=== PATIENT | male | born 1940 | race Caucasian/White ===

== ENCOUNTER 2022-03-07 12:40 | Inpatient (IN) ==
[2022-03-07] MEDS ORDERED: HYDROmorphone 1 MG/1 ML SYRINGE IV STA (14:14)
[2022-03-07] MEDS ORDERED: ONDANSETRON 4 MG/2 ML VIAL IV STA (14:14)
[2022-03-07 14:40] LABS: Basophils % 0.4 % (0.0-0.8); Eosinophils % 0.8 % (0.00-10.9); Hematocrit 31.9 VOL% (42.0-52.0); Hemoglobin 10.8 GM/DL (14.0-18.0); Immature Granulocytes % 0.4 %; Immature Granulocytes Absolute 0.01 #; Lymphocytes # 0.5 10*3/uL (1.4-4.0); Lymphocytes % 22.5 % (21.2-54.2); Mean Corpuscular HGB Conc 33.9 GM/DL (32-36); Mean Corpuscular Volume 93.3 FL (87-102); Mean Platelet Volume 12.8 FL (9.6-12.0); Monocytes # 0.5 10*3/uL (0.11-0.8); Monocytes % 21.3 % (1.7-12.7); Neutrophils % 54.6 % (38.7-73.9); Platelet Count 128 T/CUMM (130-400); Red Blood Count 3.42 MC/CUMM (3.8-5.5); Red Cell Distribution Width 15.8 % (9.3-17.3); White Blood Count 2.4 T/CUMM (4-12)
[2022-03-07 14:57] LABS: Calcium 8.1 MG/DL (8.5-10.1); Osmolality,Calculated 284.1 MOS/KG (273-304); Potassium 3.4 MMOL/L (3.5-5.1)
[2022-03-07 15:03] LABS: Eosinophils 2 % (0-10); Lymphocytes 23 % (20-55); Total Cells Counted 100
[2022-03-07 15:04] LABS: Hypochromia Slight; Ovalocytes Slight; Reactive Lymphocytes Slight; Schistocytes Slight; Tear Drop Cells Slight
[2022-03-07 15:05] LABS: Platelet Estimate Normal; Spherocytes Slight
[2022-03-07] MEDS ORDERED: DEXAMETHASONE 10 MG/1 ML VIAL IV STA (16:13)
[2022-03-07] MEDS ORDERED: guaiFENesin/DM ER 600-30 MG TABLET PO PRN (17:20)
[2022-03-07] MEDS ORDERED: ZALEPLON 5 MG CAPSULE PO PRN (17:20)
[2022-03-07] MEDS ORDERED: ONDANSETRON 4 MG/2 ML VIAL IV PRN (17:20)
[2022-03-07] MEDS ORDERED: NICOTINE 21 MG/24 HR PATCH TRANSDERM PRN (17:20)
[2022-03-07] MEDS ORDERED: hydrALAZINE 20 MG/1 ML VIAL IV PRN (17:20)
[2022-03-07] MEDS ORDERED: diphenhydrAMINE CAP 25 MG CAPSULE PO PRN (17:20)
[2022-03-07] MEDS ORDERED: GABAPENTIN 100 MG CAPSULE PO PRN (19:53)
[2022-03-07] MEDS: HYDROmorphone 1 MG/1 ML SYRINGE IV PRN (20:25)
[2022-03-07] MEDS: ALFUZOSIN 10 MG TABLET PO SCH (21:57)
[2022-03-07] MEDS: traZODone 50 MG TABLET PO SCH (21:57)
[2022-03-07] MEDS: ACYCLOVIR 200 MG CAPSULE PO SCH (22:02)
[2022-03-08] MEDS: MORPHINE 2 MG/1 ML SYRINGE IV PRN ×2 (04:09→09:41)
[2022-03-08 04:50] LABS: Hematocrit 32.6 VOL% (42.0-52.0); Hemoglobin 10.9 GM/DL (14.0-18.0); Lymphocytes # 0.4 10*3/uL (1.4-4.0); Lymphocytes % 23.5 % (21.2-54.2); Mean Corpuscular HGB Conc 33.4 GM/DL (32-36); Mean Corpuscular Volume 93.4 FL (87-102); Mean Platelet Volume 12.3 FL (9.6-12.0); Monocytes # 0.1 10*3/uL (0.11-0.8); Neutrophils % 73.5 % (38.7-73.9); Platelet Count 119 T/CUMM (130-400); Red Blood Count 3.49 MC/CUMM (3.8-5.5); Red Cell Distribution Width 15.8 % (9.3-17.3); White Blood Count 1.7 T/CUMM (4-12)
[2022-03-08 05:03] LABS: Calcium 8.2 MG/DL (8.5-10.1); Osmolality,Calculated 283.4 MOS/KG (273-304); Potassium 3.9 MMOL/L (3.5-5.1)
[2022-03-08 05:15] LABS: Hypochromia Slight; Lymphocytes 13 % (20-55); Ovalocytes Few; Platelet Estimate Normal; Total Cells Counted 100
[2022-03-08] MEDS: HYDROmorphone 1 MG/1 ML SYRINGE IV PRN ×3 (07:41→20:48)
[2022-03-08] MEDS: ATORVASTATIN 40 MG TABLET PO SCH (09:36)
[2022-03-08] MEDS: PANTOPRAZOLE 40 MG TABLET PO SCH (09:37)
[2022-03-08] MEDS: ACYCLOVIR 200 MG CAPSULE PO SCH ×2 (09:37→20:47)
[2022-03-08] MEDS: DOCUSATE SODIUM 100 MG CAPSULE PO SCH ×2 (12:38→20:47)
[2022-03-08] MEDS: LINACLOTIDE 145 MCG CAPSULE PO SCH (12:38)
[2022-03-08] MEDS: POLYETHYLENE GLYCOL POWDER 17 GM PACK PO SCH ×2 (12:38→20:47)
[2022-03-08] MEDS: LEVOFLOXACIN INJ 500 MG/100 ML PREMIX IV SCH (17:05)
[2022-03-08] MEDS: traZODone 50 MG TABLET PO SCH (20:47)
[2022-03-08] MEDS: ALFUZOSIN 10 MG TABLET PO SCH (20:47)
[2022-03-09] MEDS: MORPHINE 2 MG/1 ML SYRINGE IV PRN ×4 (00:16→15:14)
[2022-03-09] MEDS: HYDROmorphone 1 MG/1 ML SYRINGE IV PRN ×5 (02:35→21:25)
[2022-03-09] MEDS: ACYCLOVIR 200 MG CAPSULE PO SCH ×2 (08:01→21:23)
[2022-03-09] MEDS: ATORVASTATIN 40 MG TABLET PO SCH (08:01)
[2022-03-09] MEDS: DOCUSATE SODIUM 100 MG CAPSULE PO SCH ×2 (08:01→21:23)
[2022-03-09] MEDS: PANTOPRAZOLE 40 MG TABLET PO SCH (08:01)
[2022-03-09] MEDS: LINACLOTIDE 145 MCG CAPSULE PO SCH (08:14)
[2022-03-09] MEDS: POLYETHYLENE GLYCOL POWDER 17 GM PACK PO SCH ×2 (08:15→21:25)
[2022-03-09] MEDS: PROMETHAZINE 25 MG/1 ML VIAL IM PRN ×2 (10:38→17:30)
[2022-03-09] MEDS: CAPSAICIN 0.025% CREAM 60 GM TUBE TOP SCH ×4 (12:41→21:15)
[2022-03-09] MEDS: GABAPENTIN 300 MG CAPSULE PO SCH ×3 (12:41→21:23)
[2022-03-09] MEDS ORDERED: NALOXONE 0.4 MG/ML VIAL IV PRN (14:30)
[2022-03-09] MEDS: LEVOFLOXACIN INJ 500 MG/100 ML PREMIX IV SCH (17:31)
[2022-03-09] MEDS: ALFUZOSIN 10 MG TABLET PO SCH (21:24)
[2022-03-09] MEDS: traZODone 50 MG TABLET PO SCH (21:24)
[2022-03-10] MEDS: HYDROmorphone 1 MG/1 ML SYRINGE IV PRN ×4 (01:57→21:23)
[2022-03-10] MEDS: DOCUSATE SODIUM 100 MG CAPSULE PO SCH ×2 (08:38→21:23)
[2022-03-10] MEDS: LINACLOTIDE 145 MCG CAPSULE PO SCH (08:38)
[2022-03-10] MEDS: PANTOPRAZOLE 40 MG TABLET PO SCH (08:39)
[2022-03-10] MEDS: ACYCLOVIR 200 MG CAPSULE PO SCH ×2 (08:39→21:23)
[2022-03-10] MEDS: GABAPENTIN 300 MG CAPSULE PO SCH ×3 (08:39→21:23)
[2022-03-10] MEDS: ATORVASTATIN 40 MG TABLET PO SCH (08:39)
[2022-03-10] MEDS: CAPSAICIN 0.025% CREAM 60 GM TUBE TOP SCH ×4 (08:40→21:30)
[2022-03-10] MEDS ORDERED: HYDROmorphone 1 MG/1 ML SYRINGE IV PRN (08:51)
[2022-03-10] MEDS: POLYETHYLENE GLYCOL POWDER 17 GM PACK PO SCH ×2 (13:54→21:23)
[2022-03-10] MEDS: MORPHINE ER 15 MG TABLET PO SCH (14:15)
[2022-03-10] MEDS: KETOROLAC 15 MG/1 ML VIAL IV PRN (14:17)
[2022-03-10] MEDS: ALFUZOSIN 10 MG TABLET PO SCH (21:23)
[2022-03-10] MEDS: traZODone 50 MG TABLET PO SCH (21:26)
[2022-03-11] MEDS: MORPHINE ER 15 MG TABLET PO SCH ×3 (01:44→21:59)
[2022-03-11] MEDS: HYDROmorphone 1 MG/1 ML SYRINGE IV PRN ×3 (02:56→13:40)
[2022-03-11 05:46] LABS: Basophils % 0.4 % (0.0-0.8); Eosinophils # 0.1 10*3/uL (0.0-0.87); Eosinophils % 2.5 % (0.00-10.9); Hematocrit 31.4 VOL% (42.0-52.0); Hemoglobin 10.2 GM/DL (14.0-18.0); Immature Granulocytes % 0.4 %; Immature Granulocytes Absolute 0.01 #; Lymphocytes # 0.9 10*3/uL (1.4-4.0); Lymphocytes % 32.9 % (21.2-54.2); Mean Corpuscular HGB Conc 32.5 GM/DL (32-36); Mean Corpuscular Volume 95.4 FL (87-102); Mean Platelet Volume 11.5 FL (9.6-12.0); Monocytes # 0.6 10*3/uL (0.11-0.8); Monocytes % 19.9 % (1.7-12.7); Neutrophils % 43.9 % (38.7-73.9); Platelet Count 172 T/CUMM (130-400); Red Blood Count 3.29 MC/CUMM (3.8-5.5); Red Cell Distribution Width 16.2 % (9.3-17.3); White Blood Count 2.8 T/CUMM (4-12)
[2022-03-11 06:02] LABS: Calcium 7.7 MG/DL (8.5-10.1); Osmolality,Calculated 286.3 MOS/KG (273-304); Potassium 3.8 MMOL/L (3.5-5.1)
[2022-03-11 06:08] LABS: Eosinophils 2 % (0-10); Hypochromia Slight; Lymphocytes 43 % (20-55); Nucleated Red Blood Cells 1 /100 WBC (0-5); Total Cells Counted 100
[2022-03-11 06:09] LABS: Microcytosis Slight; Ovalocytes Slight; Platelet Estimate Adequate
[2022-03-11] MEDS ORDERED: FILGRASTIM-SNDZ 300 MCG/0.5 ML SYRINGE SUBCUT ONE (09:07)
[2022-03-11] MEDS: CAPSAICIN 0.025% CREAM 60 GM TUBE TOP SCH ×4 (09:51→22:00)
[2022-03-11] MEDS ORDERED: LACTATED RINGERS 1,000 ML IV SCH (11:00)
[2022-03-11] MEDS ORDERED: DEXAMETHASONE 10 MG/1 ML VIAL ONE (11:01)
[2022-03-11] MEDS ORDERED: LIDOCAINE 1% 5 ML VIAL ONE (11:08)
[2022-03-11] MEDS ORDERED: LIDOCAINE 2% 5 ML VIAL ONE (11:13)
[2022-03-11] MEDS ORDERED: fentaNYL 100 MCG/2 ML VIAL ONE (11:13)
[2022-03-11] MEDS ORDERED: propofoL 200 MG/20 ML VIAL IV ONE (11:13)
[2022-03-11] MEDS ORDERED: ONDANSETRON 4 MG/2 ML VIAL ONE (11:17)
[2022-03-11] MEDS: MORPHINE 10 MG/1 ML VIAL IV PRN ×5 (11:43→12:05)
[2022-03-11] MEDS ORDERED: MORPHINE 10 MG/1 ML VIAL ONE (11:44)
[2022-03-11] MEDS: GABAPENTIN 300 MG CAPSULE PO SCH ×3 (12:11→21:59)
[2022-03-11] MEDS: LINACLOTIDE 145 MCG CAPSULE PO SCH (13:25)
[2022-03-11] MEDS: ATORVASTATIN 40 MG TABLET PO SCH (13:26)
[2022-03-11] MEDS: DOCUSATE SODIUM 100 MG CAPSULE PO SCH ×2 (13:26→21:59)
[2022-03-11] MEDS: amLODIPine 5 MG TABLET PO SCH (13:27)
[2022-03-11] MEDS: ACYCLOVIR 200 MG CAPSULE PO SCH ×2 (13:27→22:00)
[2022-03-11] MEDS: PANTOPRAZOLE 40 MG TABLET PO SCH (13:27)
[2022-03-11] MEDS: POLYETHYLENE GLYCOL POWDER 17 GM PACK PO SCH ×2 (13:28→22:00)
[2022-03-11] MEDS: KETOROLAC 15 MG/1 ML VIAL IV PRN (15:43)
[2022-03-11] MEDS: AMOXICILLIN/CLAV 875 MG TABLET PO SCH (21:59)
[2022-03-11] MEDS: ALFUZOSIN 10 MG TABLET PO SCH (21:59)
[2022-03-11] MEDS: traZODone 50 MG TABLET PO SCH (21:59)
[2022-03-12 04:35] LABS: Hematocrit 29.5 VOL% (42.0-52.0); Hemoglobin 9.9 GM/DL (14.0-18.0); Immature Granulocytes % 1.4 %; Immature Granulocytes Absolute 0.13 #; Lymphocytes # 0.7 10*3/uL (1.4-4.0); Lymphocytes % 7.7 % (21.2-54.2); Mean Corpuscular HGB Conc 33.6 GM/DL (32-36); Mean Corpuscular Volume 94.6 FL (87-102); Mean Platelet Volume 11.5 FL (9.6-12.0); Monocytes # 1.1 10*3/uL (0.11-0.8); Monocytes % 11.4 % (1.7-12.7); Neutrophils % 79.5 % (38.7-73.9); Platelet Count 170 T/CUMM (130-400); Red Blood Count 3.12 MC/CUMM (3.8-5.5); Red Cell Distribution Width 16.2 % (9.3-17.3); White Blood Count 9.4 T/CUMM (4-12)
[2022-03-12 04:59] LABS: Band Neutrophils 4 % (0-10); Lymphocytes 9 % (20-55); Metamyelocytes 1 %; Total Cells Counted 100
[2022-03-12 05:00] LABS: Hypochromia Slight; Microcytosis Slight; Ovalocytes Few; Platelet Estimate Adequate; Target Cells Slight
[2022-03-12 05:03] LABS: Calcium 7.7 MG/DL (8.5-10.1); Osmolality,Calculated 287.4 MOS/KG (273-304); Potassium 4.4 MMOL/L (3.5-5.1)
[2022-03-12] MEDS: PANTOPRAZOLE 40 MG TABLET PO SCH (09:33)
[2022-03-12] MEDS: amLODIPine 5 MG TABLET PO SCH (09:33)
[2022-03-12] MEDS: AMOXICILLIN/CLAV 875 MG TABLET PO SCH (09:34)
[2022-03-12] MEDS: ACYCLOVIR 200 MG CAPSULE PO SCH (09:34)
[2022-03-12] MEDS: DOCUSATE SODIUM 100 MG CAPSULE PO SCH (09:34)
[2022-03-12] MEDS: GABAPENTIN 300 MG CAPSULE PO SCH ×2 (09:34→14:33)
[2022-03-12] MEDS: MORPHINE ER 15 MG TABLET PO SCH (09:34)
[2022-03-12] MEDS: LINACLOTIDE 145 MCG CAPSULE PO SCH (09:35)
[2022-03-12] MEDS: POLYETHYLENE GLYCOL POWDER 17 GM PACK PO SCH (09:35)
[2022-03-12] MEDS: ATORVASTATIN 40 MG TABLET PO SCH (09:35)
[2022-03-12] MEDS: CAPSAICIN 0.025% CREAM 60 GM TUBE TOP SCH ×2 (09:35→14:41)
[2022-03-12] MEDS: HYDROmorphone 1 MG/1 ML SYRINGE IV PRN (11:37)
[2022-03-12 12:11] VITALS: BP 134/73
== END 2022-03-12 15:55 | disposition home or self-care (01) | DRG 551 ==
LOC: N.ED 12:40 → N.TELES 12:40 → SUATTDRO 17:20 → N.TELES 18:25 → SUATTDRO 03-08 14:39
PROVIDERS: ADMIT Hospitalist; ATTEND Internal Medicine